=== PATIENT | male | born 1975 | race Caucasian/White ===

== ENCOUNTER 2018-05-30 18:35 | Inpatient (IN) | payer BC ==
[~2018-05-30] VITALS: Ht 182.9 cm; Wt 85.4 kg
--- NOTE | ~2018-05-30 | PR ---
[place], [place] PROGRESS NOTE NAME: KIM ROSARIO UNIT #: [id number] ROOM: 522 DOCTOR: ZENA CHIANG MD,PASCUAL BIRTHDATE: [birth year] DOS: 06/04/2018 SUBJECTIVE: The patient was noted comfortable at this time, resting in the bed without any acute distress. Shortness of breath, the patient continues to improve progressively. There are symptoms of chest pain or hemoptysis. Denies symptoms of nausea or vomiting. OBJECTIVE: VITAL SIGNS: Normal temperature, respiratory rate 20, heart rate 74, blood pressure 115/91. The pulse oxygen saturation of patient 3 liters nasal cannula, 94% saturation. HEENT: Examination shows head was atraumatic. Eyes nonicterus. NECK: Supple. CARDIOVASCULAR: S1, S2 audible. LUNGS: The patient was noted without any wheezing or crackles. ABDOMEN: Soft, nontender. Bowel sounds present. EXTREMITIES: Without acute edema. IMPRESSION: Resolving acute tracheobronchitis exacerbation of chronic obstructive pulmonary disease, acute hypoxic respiratory failure. Acute bacterial pneumonia as well. Rhinovirus tracheobronchitis. PLAN OF MANAGEMENT: Assessed the patient for possible home discharge with the oxygen. The patient was able to maintain the oxygen saturation normal between 3 and 4 liters nasal cannula, it could be considered discharge. Otherwise, he would be advised to continue still longer in the hospital. The patient does get discharged, he will be assessed in the office next week for this patient as well. PASCUAL FREITAS MD CM:PNTRANS [phone] PASCUAL CHIANG MD 06/04/18 7839 interface
--- NOTE | ~2018-05-30 | PR ---
[place], [place] PROGRESS NOTE NAME: KIM ROSARIO UNIT #: [id number] ROOM: 522 DOCTOR: ZENA CHIANG MD,PASCUAL BIRTHDATE: [birth year] DOS: 06/03/2018 PULMONARY PROGRESS NOTE SUBJECTIVE: The patient has been noted comfortable at this time, resting on the bed with continued improvement and reduction of respiratory symptoms were noted. He denies symptoms of fever or chills. The coughing has been subsiding. There were no symptoms of headache. OBJECTIVE: VITAL SIGNS: The vital signs of the patient, which has been recorded showed the temperature noted as normal, respiratory rate of 20, heart rate of 74, blood pressure of 120/68, pulse oxygen saturation recorded on 4 liters nasal cannula as 92% saturation. HEENT: Examination shows head was atraumatic. Eyes: Nonicterus. NECK: Supple. CARDIOVASCULAR SYSTEM: S1, S2 is audible. LUNGS: The patient was noted without any crackles. The wheezing noted mild at this time. Breath sounds are noted mildly decreased. ABDOMEN: Soft, nontender. Bowel sounds present. EXTREMITIES: The patient was noted without any acute edema. LABORATORY DATA: The respiratory virus panel noted positive for rhinovirus that was sent on admission, 05/31/2018. Mycoplasma antibodies were noted as IgG elevated suggestive of chronic infection, IgM was negative. Strep antigen was noted as negative in the urine. IMAGING DATA: The chest x-ray that was done yesterday was reviewed, resolving pneumonia, infiltration, which was noted to majorly visible on the chest x-ray in the left lower lobe with a small pleural fluid noted at the present time. Linear atelectasis noted in right lung base, which was not seen on the chest x-ray on admission. IMPRESSION: 1. The patient has been currently noted with resolving acute hypoxic respiratory failure. 2. Acute rhinovirus infection. The patient has bronchitis. 3. Acute bacterial pneumonia would be suspected strongly Strep pneumonia in spite of the negative urine for Strep antigen, which was not noted 100% sensitive testing. 4. Acute exacerbation of chronic obstructive pulmonary disease as well. 5. Small pleural fluid related to the current acute pneumonia. PLAN OF MANAGEMENT: At this time, continuation of current plan of care. At this time, the pleural fluid noted very small, would not require intervention, should resolve with current medical management. Continue antibiotics, bronchodilator, DVT prophylaxis, and corticosteroid. Titrate oxygen supplementation to maintain pulse ox 92% or greater. [place], [place] PROGRESS NOTE NAME: KIM ROSARIO UNIT #: [id number] ROOM: 522 DOCTOR: PASCUAL MENDIETA MD BIRTHDATE: [birth year] PASCUAL FREITAS MD CM:PNTRANS [phone] PASCUAL CHIANG MD 06/04/18 0145 interface
--- NOTE | ~2018-05-30 | PR ---
[place], [place] PROGRESS NOTE NAME: KIM ROSARIO UNIT #: [id number] ROOM: [facility] DOCTOR: ZENA CHIANG MD,PASCUAL BIRTHDATE: [birth year] DOS: 06/02/2018 SUBJECTIVE: The patient was noted comfortable at this time, resting on the bed without any acute distress this morning and has not been noted symptoms of fever or any chills. The shortness of breath has been improving. The wheezing was decreasing. The breathlessness, which experienced by the patient seemed to be better today. There is evidence of nausea, vomiting, diarrhea, abdominal pain, hematemesis, melena, or hematochezia. Denies any pain or edema of the lower extremities. Denies symptoms of hemoptysis. Denies symptoms of nausea, vomiting or headache. The remaining systems were reviewed. They were noted all negative. OBJECTIVE: VITAL SIGNS: Normal temperature in the last 24-hour respiratory rate 17, heart 77-104, blood pressure 119/58-120/72. The pulse oxygen saturation on 4 liters nasal cannula 92% saturation noted. HEENT: Examination shows head was atraumatic. Eyes nonicterus. NECK: Supple. CARDIOVASCULAR: S1, S2 is audible. LUNGS: The patient was noted without any wheezing or crackles at the present time. The breath sounds. ABDOMEN: Soft, nontender. Bowel sounds present. EXTREMITIES: Without any acute edema. SKIN: No lesions or rashes. MUSCULOSKELETAL: Without any acute deformities. LABORATORY DATA: Arterial blood gas yesterday, pH of 7.41, pCO2 of 34, pO2 of 71 noted with 40% of oxygen. The blood culture, no bacterial growth for the patient 05/30/2018. The legionella antigen strep antigen from the urine remains pending. IMPRESSION: 1. Multifocal bilateral pneumonia with acute respiratory failure and hypercapnia, resolving. 2. Acute exacerbation of chronic obstructive pulmonary disease. It shows severe debility has been noted with gradual improvement. PLAN OF TREATMENT: Reduction of steroids will be started further today as Solu-Medrol b.i.d. dosing. Continuation of bronchodilator. DVT prophylaxis and antibiotics. Chest x-ray PA and lateral was ordered to be done today to assess the progression of pneumonia. Clinically, the patient has been showing improvement in his overall respiratory status including pneumonia. [place], [place] PROGRESS NOTE NAME: KIM ROSARIO UNIT #: [id number] ROOM: [facility] DOCTOR: ZENA CHIANG MD,PASCUAL BIRTHDATE: [birth year] PASCUAL FREITAS MD CM:HARPAL [phone] PASCUAL CHIANG MD 06/02/18 1222 interface
--- NOTE | ~2018-05-30 | PR ---
[place], [place] PROGRESS NOTE NAME: KIM ROSARIO UNIT #: [id number] ROOM: 522 DOCTOR: ZENA CHIANG MD,PASCUAL BIRTHDATE: [birth year] DOS: 06/05/2018 SUBJECTIVE: The patient was resting comfortably at this time, ambulating. The patient was assessed yesterday. The patient was needing 3 liters of oxygen supplementation yesterday for the hypoxia. Denies symptoms of chest pain. The coughing has been noted significantly improved. OBJECTIVE: VITAL SIGNS: Normal temperature, respiratory rate 18, heart rate 86, blood pressure 129/84. Pulse oxygen saturation on 2 liters nasal cannula 95% saturation. HEENT: Examination shows head was atraumatic. Eyes nonicterus. NECK: Supple. CARDIOVASCULAR: S1, S2 is audible. LUNGS: The patient was noted without any wheezing or crackles at the present time. Breaths are noted [id number] decreased bilaterally. ABDOMEN: Soft and nontender. EXTREMITIES: No acute edema. IMPRESSION: Progressive improvement, resolution of the acute pneumonia was noted with resolving acute hypoxic respiratory failure. Improving acute exacerbation of chronic obstructive pulmonary disease. PLAN OF MANAGEMENT: Discharge planning for home for today. The oxygen supplementation most likely will be needed for the patient and may need to reassess with walk test to determine the need of oxygen. Outpatient followup will be established this week. PASCUAL FREITAS MD CM:PNTRANS [phone] PASCUAL CHIANG MD 06/13/18 0943 interface
--- NOTE | ~2018-05-30 | PR ---
[place], [place] PROGRESS NOTE NAME: KIM ROSARIO UNIT #: [id number] ROOM: 522 DOCTOR: SIMON BUNN BIRTHDATE: [birth year] DOS: 06/03/2018 PULMONARY PROGRESS NOTE SUBJECTIVE: The patient was noted sitting comfortably at his bed without any signs of acute distress at this time. The patient states he is improving and his breathing is slightly better today. The patient denies symptoms of fevers, chills, chest pain. OBJECTIVE: VITAL SIGNS: Temperature normal, respiratory rate 20, heart rate 74, blood pressure 120/68, pulse oxygen saturation on 4 liters nasal cannula 92% saturation. HEENT: Head is atraumatic. Eyes nonicterus. NECK: Supple. CARDIOVASCULAR: S1, S2 audible. LUNGS: Breathing sounds improved. Wheezing sounds diminished. Breath sounds throughout are noted to be however still moderately diminished. Decreased breath sounds however are probably chronic. EXTREMITIES: Without any acute edema. MUSCULOSKELETAL: Without any acute deformities. CENTRAL NERVOUS SYSTEM: Grossly intact. LABORATORY DATA: CBC on 06/03/2018, white blood cell count 10.1, hemoglobin 12.1, platelet count 183. IMAGING STUDIES: Chest x-ray on 06/02/2018, impression, left lower lobe infiltrate without significant change, linear atelectasis right base. Upon further examination, there does appear to be improvement in the patient's most recent chest x-ray. IMPRESSION: 1. The patient noted with currently resolving acute severe hypoxic respiratory failure, bilateral pulmonary infiltration with acute pneumonia. Viral bacteria still remains in consideration. 2. The patient with resolving acute exacerbation of chronic obstructive pulmonary disease. 3. History of nicotine dependence. PLAN OF MANAGEMENT: Cefepime was changed from 2 grams t.i.d. to 2 grams b.i.d. Continue the patient's current bronchodilators and steroids at this time. Continue current other management and therapy. The patient is improving clinically and new chest x-ray shows slight improvement. However, the patient still remains on 4 liters nasal cannulation at 92% saturation at this time. We will continue to further watch this patient and management will be changed based on changes in his clinical status. [place], [place] PROGRESS NOTE NAME: KIM ROSARIO UNIT #: [id number] ROOM: 522 DOCTOR: SIMON BUNN BIRTHDATE: [birth year] SIMON BUNN DO PASCUAL FREITAS MD CM:PNTRANS [phone] SIMON BUNN 06/04/18 0919 interface
--- NOTE | ~2018-05-30 | CON ---
[place], [place] REPORT OF CONSULTATION NAME: KIM ROSARIO UNIT #: [id number] ROOM: [facility] DOCTOR: PASCUAL MENDIETA MD BIRTHDATE: [birth year] DOS: 05/31/2018 PULMONARY CONSULTATION, EVALUATION, AND MANAGEMENT CONSULTATION REQUESTED BY: Hospitalist services. REASON FOR CONSULTATION: For assessment of the current pneumonia with acute respiratory failure. HISTORY OF PRESENT ILLNESS: A 42-year-old white male patient without any known medical condition, which will be diagnosed or treated and history of chronic nicotine dependence, recently came from [place]. The patient arrived back [place] as per spouse on Wednesday. He has not been feeling well and noted general weakness and cold symptoms. The patient went to work yesterday and noted severe lack of energy with fatigue and tiredness and came home from work. The patient's daughter was noted as RN. She checks his pulse oxygen saturation at home, which has been noted about 84% saturation per spouse. The patient was brought to the hospital for further assessment medical management. He has been noted with acute hypoxia documented during his admission in the hospital as well in the Emergency Room. The patient has been currently admitted to Intensive Care Unit. He has a chest x-ray and then CT of the chest done as well. Diagnosis of pulmonary embolism was excluded. The main symptom described in the history, respiratory symptoms, shortness of breath with the pain, which are reported in the retrosternal area. The patient not radiating, mild to moderate at the present time. He does have a cough, which has been noted nonproductive. Denies symptoms of chest pain. Denies symptoms of wheezing. REVIEW OF SYSTEMS: CONSTITUTIONAL SYMPTOMS: Denies any symptoms of fever or chills, but complained of generalized weakness and fatigue. EYES: Denies any burning, redness, discharge. EAR, NOSE, THROAT SYMPTOMS: Denies sore throat, hoarseness, otalgia, postnasal drainage or epistaxis. CARDIOVASCULAR SYSTEM: Denies angina pain, edema, pain of the lower extremities. GASTROINTESTINAL SYMPTOMS: Dysphagia, nausea, vomiting, diarrhea, abdominal pain, hematemesis, melena, or hematochezia. GENITOURINARY SYMPTOMS: No dysuria, suprapubic pain, hematuria. MUSCULOSKELETAL SYMPTOMS: No acute joint pain, redness, or tenderness. SKIN: Without lesions or rashes. MUSCULOSKELETAL SYMPTOMS: Denies acute joint pain or tenderness or deformities. CENTRAL NERVOUS SYSTEM: Denies dizziness, headache, diplopia or syncopal episodes. There were no tingling sensation of the extremities. Remaining systems were reviewed with the patient, they were noted all negative. PAST MEDICAL HISTORY: Noted significant as chronic nicotine dependence. SOCIAL HISTORY: The patient is , has 4 children, lives at home. History of tobacco use noted at a younger age a pack of cigarettes per day, active [place], [place] REPORT OF CONSULTATION NAME: KIM ROSARIO UNIT #: [id number] ROOM: [facility] DOCTOR: ZENA CHIANG MD,PASCUAL BIRTHDATE: [birth year] tobacco use until hospitalization. 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 PAST SURGICAL HISTORY: 1. Reported left ankle surgery. 2. Vasectomy. FAMILY HISTORY: His father from complication of pancreatic cancer, metastatic, age 5757 years old. Mother recently from complication related to the congestive heart failure. HOME MEDICATIONS: Reported as no regular use of medications. DRUG ALLERGIES: Noted with no known drug allergies. PHYSICAL EXAMINATION: GENERAL: This is a 42-year-old white male who has been currently noted Intensive Care Unit with the use a Venturi mask. Pulse ox saturation recorded as 89-91% with current Venturi mask. Head was atraumatic. Eyes nonicterus. Does not show any respiratory distress this morning of assessment as well. Height of the patient recorded by the nursing staff currently on admission as height of 6 feet, weight of 188 pounds, BMI 25.5. VITAL SIGNS: Noted as normal temperature, respiratory rate of 29-16, heart rate 102-90, sinus tachycardia noted, heart rate 118 beats per minute on admission, blood pressure of 125/81-114/69. The pulse oxygen saturation on room air was 88%, later on 100% ____mask 96% on BiPAP ____ 97% and currently with a Venturi mask about 90% was noted as 92-93% saturation. HEAD, EYES, EARS, NOSE, AND THROAT: Mildly obese. Head was atraumatic. Eyes: No icterus. NECK: Supple. CARDIOVASCULAR SYSTEM: S1, S2 is audible. LUNGS: Mild bilateral expiratory wheezing. There were no crackles. ABDOMEN: Soft, nontender, bowel sounds present. EXTREMITIES: Noted without any acute edema. VISIBLE SKIN: No lesions or rashes. MUSCULOSKELETAL: Without acute deformities. CENTRAL NERVOUS SYSTEM: Cranial nerves 2-12 intact. No focal deficit. LABORATORY DATA: Lactic acid noted 1.3 on 05/30/2018 on admission. CBC 05/30/2018 on admission with a normal WBC count, hemoglobin and hematocrit normal, platelet count normal. Eosinophils 1.5%. PT/INR on 05/30/2018 on admission was normal. CMP on 05/30/2018 on admission, normal BUN, creatinine and LFTs except alkaline phosphatase minimally elevated at 222. The influenza A and B, nasal washing antigens were noted as negative. Chest x-ray that was done reviewed, shows a small infiltration noted in the left lower lung. CMP that was done this morning. Phosphorus 2.1, remaining CMP grossly normal except mild elevation in alkaline phosphatase is still noted. CBC on 05/31/2018, WBC count normal, hemoglobin 13.7, platelet count was normal. The CTA of the chest does not show any dense of pulmonary embolism on 05/30/2018. Evidence of patchy area of infiltration noted including ground-glass capacity, which has been present in the left upper lobe, lingula and left lower lobe with a large infiltration, [place], [place] REPORT OF CONSULTATION NAME: KIM ROSARIO UNIT #: [id number] ROOM: [facility] DOCTOR: ZENA CHIANG MD,[facility] BIRTHDATE: [birth year] consolidation was also noted in the left lower lobe. Small infiltration was also noted in the right upper and the right middle lobe, right lower lobe were noted clear. Mild nonspecific lymphadenopathy noted in the mediastinal area does not appear to be pathological. There were no pleural effusions, abnormal pulmonary nodules. IMPRESSION: 1. Currently admitted to the hospital with multifocal pneumonia with severe acute hypoxic respiratory failure onset of acute exacerbation of chronic obstructive pulmonary disease, very likely with history of long-term tobacco use or combination with bronchial asthma. 2. History of chronic nicotine dependence as well. 3. General weakness and fatigue related to current acute infection. The differential of the current infection would be considered typical atypical organism including viral etiologies. Influenza A and B, nasal washing antigen were noted negative; however, additional water. 4. Infection, may need to be considered and assessed at bedside. PLAN OF MANAGEMENT: Supplementation of oxygen to be continued with a pulse oxygen at a saturation of 92% care. If necessary use Optiflow nasal cannula of oxygen. Arterial blood gas was noted with mild hypercapnia with a pH of 7.34, pO2 of 216, 100% nonrebreather mask. BiPAP could be used for the patient to support the respiratory status or use of the Optiflow high flow nasal cannula for the medical management of current hypoxemic respiratory failure. Bronchodilator would be continued. The patient already receiving Solu-Medrol 60 mg every 8 hours dose will be decreased lower dose of 40 mg every 8 hours. The patient with further reduction done. Adjust the antibiotics. The patient has cefepime appropriate coverage of 2 gram b.i.d. dosing for patient as well for the management of the community-acquired pneumonia Intensive Care Unit. Continuation of Zithromax. Obtained for ____ Legionella antigen as well as mycoplasma antigen. Obtain the respiratory virus profile. Urine for legionella antigen was ordered as well. Sputum for Gram stain culture ____ sputum will be sent. Other additional treatment changes will be made based on the progression of his illness. Other additional treatment changes, continue be recommended based on progression of the illness. Assessment and management has been discussed with the patient's daughter and his spouse. PASCUAL FREITAS MD CM:CONSTR:REPORT OF CONSULTATION 1211 05/31/18 4166 interface
--- NOTE | ~2018-05-30 | PR ---
[place], [place] PROGRESS NOTE NAME: KIM ROSARIO UNIT #: [id number] ROOM: 522 DOCTOR: SIMON BUNN BIRTHDATE: [birth year] DOS: 06/02/2018 PULMONARY PROGRESS NOTE SUBJECTIVE: The patient was noted sitting comfortably in his bed at rest today without any signs of acute distress. The patient states he is breathing better today with decreased wheezing. The patient currently denies fevers, chills and chest pain. Tachycardia at this time appears to be resolved. OBJECTIVE: VITAL SIGNS: Temperature normal, respiratory rate 17, heart rate 77, blood pressure 120/72, pulse oxygen saturation on 4 liters nasal cannula 92%. HEENT: Head is atraumatic. Eyes nonicterus. NECK: Supple. CARDIOVASCULAR: S1, S2 audible. LUNGS: Moderately decreased breath sounds throughout, wheezing throughout also noted. ABDOMEN: Soft, nontender. EXTREMITIES: Without any acute deformities. CENTRAL NERVOUS SYSTEM: Grossly intact. LABORATORY DATA: Blood gas on 06/01/2018, pCO2 of 34.6, pO2 of 71.6, pH of 7.417. ASSESSMENT: 1. The patient noted with currently resolving acute severe hypoxic respiratory failure, bilateral pulmonary infiltration with acute pneumonia. 2. Resolving acute exacerbation of chronic obstructive pulmonary disease. 3. History of nicotine dependence. PLAN OF MANAGEMENT: Steroids will be decreased to 40 mg b.i.d. A 2-view chest x-ray ordered. Continue the patient's current antibiotics and bronchodilator management. Further changes in care will be made depending on the changing clinical status of the patient. Continue usual care, other treatment therapy, plan of management and care. SIMON BUNN DO [place], [place] PROGRESS NOTE NAME: KIM ROSARIO UNIT #: [id number] ROOM: 522 DOCTOR: SIMON BUNN BIRTHDATE: [birth year] PASCUAL FREITAS MD CM:PNTRANS [phone] [facility] 06/03/18 0735 interface
--- NOTE | ~2018-05-30 | EKG ---
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
--- NOTE | ~2018-05-30 | PR ---
[place], [place] PROGRESS NOTE NAME: KIM ROSARIO UNIT #: [id number] ROOM: [facility] DOCTOR: ZENA CHIANG MD,PASCUAL BIRTHDATE: [birth year] DOS: 06/01/2018 PULMONARY PROGRESS NOTE SUBJECTIVE: The patient was comfortably resting in the bed with reduction in symptoms and shortness breath, still requires oxygen supplementation, Venturi mask. There is mild improvement in hypoxia, the patient was noted. Wheezing was noted decreased. There were no symptoms of chest pain, fever or chills. Denies symptoms of hemoptysis at the present time. Denies symptoms of nausea or vomiting. Tachycardia is resolving. Denies symptoms of headache or diplopia. Denies symptoms of hematemesis or melena. Remaining systems reviewed were noted all negative. OBJECTIVE: VITAL SIGNS: This morning, normal temperature, respiratory rate 21, heart rate 81, blood pressure 100/50. Pulse oxygen saturation on 40% Venturi mask was 93% saturation. HEENT: Head was atraumatic, eyes nonicterus. NECK: Supple. CARDIOVASCULAR: S1 and S2 audible. LUNGS: With moderate decreased breath sounds and [id number] expiratory wheezing, decreased from previous examination. ABDOMEN: Soft, nontender. Bowel sounds present. EXTREMITIES: Without any acute edema. MUSCULOSKELETAL: Without any acute deformities. CENTRAL NERVOUS SYSTEM: Cranial nerves 2-12 intact. LABORATORY DATA: CBC in the labs today, WBC count 14.8, hemoglobin 12.2, platelet count normal. BMP this morning has normal BUN and creatinine. IMPRESSION: 1. The patient has been noted with currently resolving acute severe hypoxic respiratory failure, bilateral pulmonary infiltration with acute pneumonia. Viral or bacteria remains in consideration. 2. The patient with resolving acute exacerbation of chronic obstructive pulmonary disease. 3. History of nicotine dependency. PLAN OF MANAGEMENT: Obtain another arterial blood gas to assess his ventilatory status and oxygenation in the blood. Titrate oxygen supplement to maintain pulse ox 92% or greater. The patient may be transferred from the intensive care unit to telemetry floor whenever desired by the primary care attending. Other supportive therapy and plan of management for the patient as previously will be continued. Usual care, other treatment therapy, plan of management and care. [place], [place] PROGRESS NOTE NAME: KIM ROSARIO UNIT #: [id number] ROOM: [facility] DOCTOR: PASCUAL MENDIETA MD BIRTHDATE: [birth year] PASCUAL FREITAS MD CM:HARPAL [id number] PASCUAL CHIANG MD 06/01/18 1305 interface
[2018-05-30 18:35] VITALS: BP 122/82
[~2018-05-30 18:35] MED LIST: AUGMENTIN 875 M1 TAB PO; CLARITIN10 MG PO; CLEOCIN150 MG PO; MOTRIN800 MG PO; NAPROSYN500 MG PO; NORCO 5-325 TA1 EACH PO
[2018-05-30 19:31] LABS: BASO % 0.4 % (0.0-1.0); EOS # 0.2 10*3/uL (0.0-0.4); EOS % 1.5 % (1.0-4.0); HEMATOCRIT 44.8 % (42.0-52.0); HEMOGLOBIN 15.1 g/dl (14.0-18.0); LYMPH # 0.8 10*3/uL (1.3-4.4); LYMPH % 7.7 % (27.0-41.0); MEAN CELL VOLUME 94.5 fl (80.0-94.0); MEAN CORPUSCULAR HGB 31.9 pg (27.0-31.0); MEAN CORPUSCULAR HGB CONC 33.7 g/dl (33.0-37.0); MEAN PLATELET VOLUME 9.5 fl (9.6-12.3); MONO # 0.6 10*3/uL (0.1-1.0); MONO % 5.6 % (3.0-9.0); NEUT # 9.1 10*3/uL (2.3-7.9); NEUT % 84.5 % (47.0-73.0); PLATELET COUNT AUTOMATED 143 10*3/uL (130-400); RED BLOOD COUNT 4.74 10*6/uL (4.50-5.90); RED CELL DISTRI WIDTH 12.5 % (0-14.5); WHITE BLOOD COUNT 10.8 10*3/uL (4.8-10.8)
[2018-05-30 19:40] LABS: INTERNATIONAL NORM RATIO 0.9 (2.0-3.5)
[2018-05-30 19:44] VITALS: BP 142/83
[2018-05-30 19:47] LABS: ALBUMIN 3.8 gm/dl (3.1-4.5); ALKALINE PHOSPHATASE 222 U/L (45-117); BUN 9 mg/dl (7-24); CHLORIDE 101 mmol/L (98-107); CREATININE 0.91 mg/dL (0.70-1.30); SGOT/AST 23 IU/L (3-35); SGPT/ALT 35 U/L (12-78); SODIUM 137 mmol/L (136-145); TOTAL PROTEIN 7.6 gm/dL (6.4-8.2)
[2018-05-30 19:50] LABS: TROPONIN I < 0.015 ng/ml (<0.045)
[2018-05-30 22:25] VITALS: BP 110/74
[2018-05-30 23:17] VITALS: BP 93/66
[2018-05-31] VITALS: BP 125/81
[2018-05-31 00:29] LABS: ABG HCO3 24.5 mmol/l (22-26); ABG O2 SATURATION 99.3 % (95-97); ARTERIAL BLOOD GAS PCO2 46.6 mmHg (35-45); ARTERIAL BLOOD GAS PH 7.342 (7.35-7.45)
[2018-05-31 04:00] VITALS: BP 114/69
[2018-05-31 05:44] LABS: ALBUMIN 3.4 gm/dl (3.1-4.5); BUN 9 mg/dl (7-24); CHLORIDE 106 mmol/L (98-107); CHOLESTEROL 200 mg/dL (<200); HDL CHOLESTEROL 58 mg/dl (40-60); LDL CHOLESTEROL 130 mg/dL (9-159); PHOSPHOROUS 2.1 mg/dL (2.5-4.9); POTASSIUM 4.2 mmol/L (3.5-5.1); SGOT/AST 19 IU/L (3-35); SGPT/ALT 29 U/L (12-78); SODIUM 140 mmol/L (136-145); TOTAL PROTEIN 7.3 gm/dL (6.4-8.2); TRIGLYCERIDES 62 mg/dl (<150); VLDL CHOLESTEROL 12 mg/dL (6-40)
[2018-05-31 05:50] LABS: ALKALINE PHOSPHATASE 201 U/L (45-117); THYROID STIM HORMONE (HS) 0.212 uIU/ml (0.358-4.75)
[2018-05-31 06:05] LABS: HEMATOCRIT 42.3 % (42.0-52.0); HEMOGLOBIN 13.7 g/dl (14.0-18.0); MEAN CELL VOLUME 96.6 fl (80.0-94.0); MEAN CORPUSCULAR HGB 31.3 pg (27.0-31.0); MEAN CORPUSCULAR HGB CONC 32.4 g/dl (33.0-37.0); MEAN PLATELET VOLUME 10.1 fl (9.6-12.3); PLATELET COUNT AUTOMATED 138 10*3/uL (130-400); RED BLOOD COUNT 4.38 10*6/uL (4.50-5.90); RED CELL DISTRI WIDTH 12.9 % (0-14.5); WHITE BLOOD COUNT 7.7 10*3/uL (4.8-10.8)
[2018-05-31 07:21] LABS: ATYPICAL LYMPHS 1 % (0-0); TOTAL CELLS COUNTED 100 #CELLS
[2018-05-31 07:22] LABS: PLATELET SUFFICIENCY NORMAL (NORMAL)
[2018-05-31 07:51] LABS: VITAMIN D, 25-HYDROXY 20.3 ng/mL (30-100)
[2018-05-31 08:00] VITALS: BP 116/70
[2018-05-31 11:51] VITALS: BP 111/71
[2018-05-31 16:00] VITALS: BP 97/53
[2018-05-31 20:00] VITALS: BP 101/59
[2018-06-01] VITALS: BP 101/63
[2018-06-01 04:00] VITALS: BP 103/67
[2018-06-01 05:05] LABS: BUN 14 mg/dl (7-24); CHLORIDE 110 mmol/L (98-107); CREATININE 0.82 mg/dL (0.70-1.30); PHOSPHOROUS 3.4 mg/dL (2.5-4.9); POTASSIUM 4.6 mmol/L (3.5-5.1); SODIUM 141 mmol/L (136-145)
[2018-06-01 06:12] LABS: HEMATOCRIT 37.6 % (42.0-52.0); HEMOGLOBIN 12.2 g/dl (14.0-18.0); MEAN CELL VOLUME 98.7 fl (80.0-94.0); MEAN CORPUSCULAR HGB CONC 32.4 g/dl (33.0-37.0); MEAN PLATELET VOLUME 10.4 fl (9.6-12.3); PLATELET COUNT AUTOMATED 164 10*3/uL (130-400); RED BLOOD COUNT 3.81 10*6/uL (4.50-5.90); RED CELL DISTRI WIDTH 13.2 % (0-14.5); WHITE BLOOD COUNT 14.8 10*3/uL (4.8-10.8)
[2018-06-01 06:57] LABS: TOTAL CELLS COUNTED 100 #CELLS
[2018-06-01 06:58] LABS: PLATELET SUFFICIENCY NORMAL (NORMAL); TOXIC GRANULATION SLIGHT
[2018-06-01 08:00] VITALS: BP 100/50
[2018-06-01 12:00] VITALS: BP 100/57
[2018-06-01 12:56] LABS: ABG BASE EXCESS -1.6 mmol/L (-2.0-2.0); ABG O2 SATURATION 94.7 % (95-97); ARTERIAL BLOOD GAS PCO2 34.6 mmHg (35-45); ARTERIAL BLOOD GAS PH 7.417 (7.35-7.45); ARTERIAL BLOOD GAS PO2 71.6 mmHg (80-90)
[2018-06-01 16:00] VITALS: BP 105/58
[2018-06-01 20:00] VITALS: BP 119/58
[2018-06-02] VITALS: BP 110/65
[2018-06-02 04:00] VITALS: BP 115/65
[2018-06-02 08:00] VITALS: BP 120/72
[2018-06-02 12:00] VITALS: BP 118/70
[2018-06-02 15:07] LABS: MYCOPLASMA PNEUMONIAE IGG 783 U/mL (0-99); MYCOPLASMA PNEUMONIAE IGM <770 U/mL (0-769)
[2018-06-02 16:00] VITALS: BP 112/61
[2018-06-02 20:00] VITALS: BP 111/63
[2018-06-03] VITALS: BP 119/58
[2018-06-03 03:13] LABS: ADENOVIRUS Negative (Negative); INFLUENZA A Negative (Negative); INFLUENZA B Negative (Negative); METAPNEUMOVIRUS Negative (Negative); PARAINFLUENZA 1 Negative (Negative); PARAINFLUENZA 2 Negative (Negative); PARAINFLUENZA 3 Negative (Negative); RHINOVIRUS Positive (Negative); RSV A Negative (Negative); RSV B Negative (Negative)
[2018-06-03 06:11] LABS: BASO % 0.1 % (0.0-1.0); HEMATOCRIT 38.2 % (42.0-52.0); HEMOGLOBIN 12.1 g/dl (14.0-18.0); LYMPH # 1.2 10*3/uL (1.3-4.4); LYMPH % 11.7 % (27.0-41.0); MEAN CELL VOLUME 97.7 fl (80.0-94.0); MEAN CORPUSCULAR HGB 30.9 pg (27.0-31.0); MEAN CORPUSCULAR HGB CONC 31.7 g/dl (33.0-37.0); MEAN PLATELET VOLUME 9.3 fl (9.6-12.3); MONO # 0.6 10*3/uL (0.1-1.0); MONO % 6.3 % (3.0-9.0); NEUT # 8.2 10*3/uL (2.3-7.9); NEUT % 81.6 % (47.0-73.0); PLATELET COUNT AUTOMATED 183 10*3/uL (130-400); RED BLOOD COUNT 3.91 10*6/uL (4.50-5.90); RED CELL DISTRI WIDTH 13.1 % (0-14.5); WHITE BLOOD COUNT 10.1 10*3/uL (4.8-10.8)
[2018-06-03 06:35] LABS: BUN 20 mg/dl (7-24); CHLORIDE 106 mmol/L (98-107); CREATININE 0.79 mg/dL (0.70-1.30); POTASSIUM 3.9 mmol/L (3.5-5.1); SODIUM 140 mmol/L (136-145)
[2018-06-03 08:00] VITALS: BP 120/68
[2018-06-03 12:00] VITALS: BP 121/83
[2018-06-03 16:00] VITALS: BP 123/69
[2018-06-03 20:00] VITALS: BP 124/65
[2018-06-04] VITALS: BP 123/76
[2018-06-04 06:23] LABS: BASO % 0.1 % (0.0-1.0); EOS % 0.1 % (1.0-4.0); HEMATOCRIT 38.2 % (42.0-52.0); HEMOGLOBIN 12.6 g/dl (14.0-18.0); LYMPH # 1.4 10*3/uL (1.3-4.4); LYMPH % 17.8 % (27.0-41.0); MEAN CELL VOLUME 96.7 fl (80.0-94.0); MEAN CORPUSCULAR HGB 31.9 pg (27.0-31.0); MEAN PLATELET VOLUME 9.3 fl (9.6-12.3); MONO # 0.4 10*3/uL (0.1-1.0); MONO % 4.9 % (3.0-9.0); NEUT # 5.8 10*3/uL (2.3-7.9); NEUT % 76.2 % (47.0-73.0); PLATELET COUNT AUTOMATED 178 10*3/uL (130-400); RED BLOOD COUNT 3.95 10*6/uL (4.50-5.90); RED CELL DISTRI WIDTH 12.7 % (0-14.5); WHITE BLOOD COUNT 7.7 10*3/uL (4.8-10.8)
[2018-06-04 06:53] LABS: BUN 16 mg/dl (7-24); CHLORIDE 106 mmol/L (98-107); POTASSIUM 3.9 mmol/L (3.5-5.1); SODIUM 142 mmol/L (136-145)
[2018-06-04 08:00] VITALS: BP 115/91
[2018-06-04 12:00] VITALS: BP 125/77
[2018-06-04 16:00] VITALS: BP 125/77
[2018-06-04 20:00] VITALS: BP 122/72
[2018-06-05] VITALS: BP 114/69
[2018-06-05 08:00] VITALS: BP 129/84
[2018-06-05] MEDS ORDERED: PREDNISONE10 MG PO (13:29)
[2018-06-05] MEDS ORDERED: LEVOFLOXACIN500 MG PO (13:29)
[2018-06-05] MEDS ORDERED: OXYGEN NAS (13:29)
[2018-06-05] MEDS ORDERED: NICODERM CQ1 EAC2 TD (13:29)
[2018-06-05] MEDS ORDERED: VITAMIN D5000 UNI1 PO (13:29)
== END 2018-06-05 15:30 | disposition home or self-care (01) | DRG 871 ==
LOC: ED 18:35 → ICCU 23:05 → EDHOLD 23:05 → ICCU 23:19 → 5E 06-02 17:55
PROVIDERS: Emergency Medicine; Family Medicine; Internal Medicine; Internal Medicine Critical Care Medicine; Student in an Organized Health Care Education/Training Program
PROC: 5A09357 Assistance with Respiratory Ventilation, Less than 24 Consecutive Hours, Continuous Positive Airway Pressure (ICD-10-PCS; principal; 2018-05-30)
DX: A41.9 Sepsis, unspecified organism (principal); J96.02 Acute respiratory failure with hypercapnia; J96.01 Acute respiratory failure with hypoxia; J15.9 Unspecified bacterial pneumonia; E87.2 Acidosis; J44.1 Chronic obstructive pulmonary disease with (acute) exacerbation; J44.0 Chronic obstructive pulmonary disease with (acute) lower respiratory infection; J20.6 Acute bronchitis due to rhinovirus; R65.20 Severe sepsis without septic shock; E66.3 Overweight; E83.39 Other disorders of phosphorus metabolism; R73.9 Hyperglycemia, unspecified; R74.8 Abnormal levels of other serum enzymes; F17.210 Nicotine dependence, cigarettes, uncomplicated; E78.5 Hyperlipidemia, unspecified; R11.10 Vomiting, unspecified; K76.0 Fatty (change of) liver, not elsewhere classified; Z71.6 Tobacco abuse counseling; Z98.52 Vasectomy status; Z80.9 Family history of malignant neoplasm, unspecified; Z82.49 Family history of ischemic heart disease and other diseases of the circulatory system; Z68.25 Body mass index [BMI] 25.0-25.9, adult

== ENCOUNTER 2022-01-04 15:59 | Emergency (ER) | payer BC ==
[~2022-01-04] VITALS: Ht 185.4 cm; Wt 104.3 kg
[~2022-01-04 15:59] MED LIST changes: +LEVOFLOXACIN500 MG PO; +NICODERM CQ1 EAC2 TD; +OXYGEN NAS; +PREDNISONE10 MG PO; +VITAMIN D5000 UNI1 PO
[2022-01-04] MEDS ORDERED: AMOXICILLIN875 MG PO (18:00)
== END 2022-01-04 18:15 | disposition home or self-care (01) ==
LOC: ED 15:59
DX: K04.7 Periapical abscess without sinus (principal)